=== PATIENT | male | born 1965 | race Hispanic/Latino ===

== ENCOUNTER → 2020-06-04 | Outpatient (CLI) | payer BC, OTHER ==
[~2020-06-04] MED LIST: COVID-19 VACC, MRNA(MODERNA)/PF 100 MCG/0.5 ML VIAL IM ONE; Z.0.AMLODIPINE BESYL PO; Z.0.BENICAR HCT 401 PO; Z.0.METOPROLOL TART5 PO
== END | disposition home or self-care (01) ==
LOC: VACCPMC 12:58
DX: Z23 Encounter for immunization (principal); Z20.822 Contact with and (suspected) exposure to COVID-19
CPT/HCPCS: 91301

== ENCOUNTER → 2020-07-01 | Outpatient (CLI) | payer BC, OTHER | END | disposition home or self-care (01) | LOC: VACCPMC 12:08 | DX: Z23 Encounter for immunization (principal); Z20.822 Contact with and (suspected) exposure to COVID-19 | CPT/HCPCS: 91301 ==